=== PATIENT | female | born 1975 | race Caucasian/White ===

== ENCOUNTER 2021-12-29 05:07 | Inpatient (IN) ==
[2021-12-29] MEDS ORDERED: ONDANSETRON INJ 2 MG/ML 2 ML VIAL IV STA (05:20)
[2021-12-29] MEDS ORDERED: SODIUM CHLORIDE 0.9% 1000ML 1,000 ML IV STA (05:20)
[2021-12-29] MEDS ORDERED: MoRPHine SULFATE 4 MG/ML 1 ML CARP\\VIAL IV STA ×2 (05:20→07:00)
--- NOTE | 2021-12-29 05:25 | Emergency Department Note ---
History of Present Illness General Chief complaint: Flank Pain Stated complaint: RIGHT SIDE PAIN Time Seen by Provider: 12/29/21 05:16 History of Present Illness Maximum Pain Intensity: 10 This 46-year-old presents to the ER complaining of abdominal pain Location: Right upper quadrant Quality: Painful Severity: Moderate Duration: Past 3 days Timin days ago Context: Pain got worse and patient came in Modifying factors: better with nothing; worse with eating Patient states symptoms get worse with eating. Patient denies chest pain, dyspnea, fevers, flulike illness. She still has her gallbladder. Past Med/Surg History Medical History High blood pressure Surgical History (Updated 12/29/21 @ 05:22 by Rhonda Tariq PA-C) No pertinent past surgical history Social History Smoking Status: Never smoker Preferred Language: Czech Feels Safe at Home: Yes Review of Systems A total of 10 systems reviewed and were otherwise negative Physical Exam Vital Signs Vital Signs - 24 hr 12/29/21 05:12 12/29/21 05:28 12/29/21 06:23 Temperature 37.1 C Temperature Source Oral Pulse Rate 108 H Pulse Rate [Right Finger] 90 Respiratory Rate 22 20 Respiratory Effort / Characteristics Non-Labored Spontaneous Respiratory Depth Normal Blood Pressure 133/73 Blood Pressure [Right Arm] 155/91 H Blood Pressure Mean 93 Blood Pressure Mean [Right Arm] 112 Blood Pressure Position [Right Arm] Sitting Pulse Oximetry 93 92 94 Oxygen Delivery Method Room Air Room Air Room Air Sepsis New/Unexplained Change in Mental Status N/A Sepsis Action Taken by Nursing No Action Required VITALS: Vitals are noted on the nurse's note and reviewed by myself. Vital signs stable. GENERAL: Pleasant female who appears in pain with an elevated BMI in no acute distress, nondiaphoretic, well-developed well-nourished. SKIN: The skin was without rashes, erythema, edema, or bruising. There is no tenting of the skin. Capillary reflex less than 2 seconds. HEAD: Normocephalic atraumatic. EARS: External auditory canals clear, EYES: Pupils equal round and reactive to light and accommodation. Conjunctivae without injection, sclerae without icterus. Extraocular movements intact. NOSE: Patent, turbinates without inflammation or discharge. MOUTH: Mucous membranes moist. Pharynx without erythema or exudate. Uvula midline. Airway patent. Tongue does not deviate. NECK: Supple without nuchal rigidity. No lymphadenopathy. No thyromegaly. Cervical spine is nontender. No JVD. HEART: Regular rate and rhythm LUNGS: Clear to auscultation bilaterally without wheezes, rales or rhonchi. No retractions or accessory muscle use. ABDOMEN: Positive bowel sounds x 4. Normal tympanic percussion. Soft, tender right upper quadrant, r, without masses or organomegaly. Ceja sign positive. No guarding or rebound tenderness. No CVA tenderness MUSCULOSKELETAL: No muscle atrophy, erythema, or edema noted. NEURO: Patient was alert and oriented to person place and time. Normal sensation to light and sharp touch. No focal neurological deficits. Course Administered Medications Cefoxitin Sodium (Mefoxin) 2,000 mg in 60 mls @ 100 mls/hr IV NOW STA Stop: 12/29/21 06:59 Last Admin: 12/29/21 06:30 Dose: 100 mls/hr Documented by: [id number] Discontinued Medications Sodium Chloride (Nss 1000ml) 1,000 mls @ 999 mls/hr IV .[id number] STA Stop: 12/29/21 06:20 Last Infusion: 12/29/21 06:31 Dose: 0 mls/hr Documented by: [id number] Admin: 12/29/21 05:30 Dose: 999 mls/hr Documented by: [id number] Morphine Sulfate (Morphine Sulfate 4 Mg/Ml 1 Ml Carp\Vial) 4 mg IV NOW STA Stop: 12/29/21 05:21 Last Admin: 12/29/21 05:30 Dose: 4 mg Documented by: [id number] Ondansetron HCl (Ondansetron Inj 2 Mg/Ml 2 Ml Vial) 4 mg IV NOW STA Stop: 12/29/21 05:21 Last Admin: 12/29/21 05:30 Dose: 4 mg Documented by: [id number] Medical Decision Making Medical Records Attestation: I reviewed the patient's medical records. Home Medications Current Medication List: was personally reviewed by me Laboratory Data Attestation: I reviewed the patient's lab results. Result diagrams: 12/29/21 05:20 12/29/21 05:20 Lab Results 12/29/21 12/29/21 12/29/21 Range/Units 05:20 05:20 05:20 WBC 14.05 H (4.8-10.8) K/uL RBC 5.09 (4.2-5.4) M/uL Hgb 15.6 (12.0-16.0) g/dL Hct 46.6 (37-47) % MCV 91.6 (80-100) fL MCH 30.6 (25-34) pg MCHC 33.5 (32-36) g/dL RDW Std Deviation 49.4 H (36.4-46.3) fL RDW Coeff of Amara 14.6 H (11.5-14.5) % Plt Count 262 (130-400) K/uL MPV 13.7 H (7.4-10.4) fL Immature Gran % (Auto) 0.4 % Neut % (Auto) 75.1 % Lymph % (Auto) 17.9 % Luce % (Auto) 5.9 % Eos % (Auto) 0.5 % Baso % (Auto) 0.2 % Neut # (Auto) 10.56 H (1.4-6.5) K/uL Lymph # (Auto) 2.51 (1.2-3.4) K/uL Luce # (Auto) 0.83 H (0.11-0.59) K/uL Eos # (Auto) 0.07 (0-0.5) K/uL Baso # (Auto) 0.03 (0-0.2) K/uL Immature Gran # (Auto) 0.05 H (0.00-0.02) K/uL Sodium 137 (136-145) mmol/L Potassium 3.9 (3.5-5.1) mmol/L Chloride 103 (98-107) mmol/L Carbon Dioxide 22 (21-32) mmol/L Anion Gap 12 H (3-11) BUN 10 (6-23) mg/dl Creatinine 0.75 (0.6-1.2) mg/dl Est Cr Clr Drug Dosing 132.2 ml/min Est GFR ( Amer) 112.4 ml/min Est GFR (Non-Af Amer) 96.9 ml/min BUN/Creatinine Ratio 13.3 (10-20) Glucose 180 H (70-99(Fasting)) mg/dl Calcium 9.1 (8.5-10.1) mg/dl Total Bilirubin 0.9 (0.2-1.0) mg/dl AST 17 (13-39) U/L ALT 24 (7-52) U/L Alkaline Phosphatase 102 (34-104) U/L Total Protein 7.8 (6.0-8.3) gm/dl Albumin 4.3 (3.4-5.0) gm/dl Globulin 3.5 (2.5-4.0) gm/dl Albumin/Globulin Ratio 1.2 (0.9-2) Lipase 14 (11-82) U/L HCG, Qual Negative (Negative) SARS-CoV-2, RNA, NAAT (NEGATIVE) 12/29/21 Range/Units 06:20 WBC (4.8-10.8) K/uL RBC (4.2-5.4) M/uL Hgb (12.0-16.0) g/dL Hct (37-47) % MCV (80-100) fL MCH (25-34) pg MCHC (32-36) g/dL RDW Std Deviation (36.4-46.3) fL RDW Coeff of Amara (11.5-14.5) % Plt Count (130-400) K/uL MPV (7.4-10.4) fL Immature Gran % (Auto) % Neut % (Auto) % Lymph % (Auto) % Luce % (Auto) % Eos % (Auto) % Baso % (Auto) % Neut # (Auto) (1.4-6.5) K/uL Lymph # (Auto) (1.2-3.4) K/uL Luce # (Auto) (0.11-0.59) K/uL Eos # (Auto) (0-0.5) K/uL Baso # (Auto) (0-0.2) K/uL Immature Gran # (Auto) (0.00-0.02) K/uL Sodium (136-145) mmol/L Potassium (3.5-5.1) mmol/L Chloride (98-107) mmol/L Carbon Dioxide (21-32) mmol/L Anion Gap (3-11) BUN (6-23) mg/dl Creatinine (0.6-1.2) mg/dl Est Cr Clr Drug Dosing ml/min Est GFR ( Amer) ml/min Est GFR (Non-Af Amer) ml/min BUN/Creatinine Ratio (10-20) Glucose (70-99(Fasting)) mg/dl Calcium (8.5-10.1) mg/dl Total Bilirubin (0.2-1.0) mg/dl AST (13-39) U/L ALT (7-52) U/L Alkaline Phosphatase (34-104) U/L Total Protein (6.0-8.3) gm/dl Albumin (3.4-5.0) gm/dl Globulin (2.5-4.0) gm/dl Albumin/Globulin Ratio (0.9-2) Lipase (11-82) U/L HCG, Qual (Negative) SARS-CoV-2, RNA, NAAT NEGATIVE (NEGATIVE) Imaging Data Attestation: I personally reviewed and interpreted this imaging study as follows: MDM Narrative Prior records/ancillary studies reviewed. Triage Nursing notes reviewed. Additional history obtained from nursing. The patient's history was concerning for abdominal pain. Differential diagnosis: Etiologies such as appendicitis, diverticulitis, PUD, biliary pathology, UTI, pancreatitis, obstruction, mesenteric ischemia, aortic pathology, infections, inflammatory bowel disease, renal colic, as well as others were entertained. Physical examination findings: As above. ER treatment provided: An order was placed for continuous cardiac monitoring. The monitor shows a rate of 60-1 50 with a sinus rhythm. Zofran morphine IV fluids On reassessment the patient felt better. Diagnostics interpreted by me: The labs revealed mild leukocytosis Hyperglycemia without DKA Imaging studies: US RUQ: Probable cholelithiasis and sludge in gallbladder including a 1.6 cm stone at gallbladder neck which appears non-mobile and there is gallbladder wall th ickening, measuring up to 5.9 mm. Evaluation for sonographic Ceja sign is limited by administration of medication. Findings are suspicious for acute cholecystitis. Consider correlation with nuclear medicine biliary scan as clinically warranted. Common bile duct is mildly dilated, measuring 8.5 mm. Probable hepatic steatosis and hepatomegaly. Question intrahepatic biliary ductal dilatation in right lobe of liver. Radiologist: Conner Alvarado MD Consultation: A consultation was placed with Surgery,Dr Gage. The case was discussed and diagnostics were reviewed. The patient was evaluated in the ER for further treatment by GS. Exam and history seem consistent with acute cholecystitis. Surgery was consulted. They will evaluate for further evaluation and treatment. By the evaluation outlined above emergent etiologies such as appendicitis, diverticulitis, PUD, UTI, pancreatitis, obstruction, mesenteric ischemia, aortic pathology, inflammatory bowel disease, renal colic, as well as others were deemed relatively unlikely. The pt informed about the findings as listed above. All questions were answered and pleased with the treatment. The chart was completed utilizing [employer] Speech voice recognition software. Grammatical errors, random word insertions, pronoun errors, and incomplete sentences are an occassional consequence of this system due to software limitations, ambient noise, and hardware issues. Any formal questions or concerns about the content, text, or information contained within the body of this dictation should be directly addressed to the physician cardiovascular physician assistant for clarification. Impression & Plan Acute cholecystitis Discharge Plan Visit Data Chief Complaint: Flank Pain Stated Complaint: RIGHT SIDE PAIN ED Provider: Chris Narayan ED Midlevel Provider: Rhonda Tariq Discharge Problem: Acute cholecystitis Patient Disposition: Being Evaluated by Surgeon Condition: Good Forms Stand Alone Forms: [facility] Referrals Referrals: PCP,NO [Primary Care Provider] -
[2021-12-29 05:35] LABS: Basophils # (auto) 0.03 K/uL (0-0.2); Basophils % (auto) 0.2 %; Eosinophils # (auto) 0.07 K/uL (0-0.5); Eosinophils % (auto) 0.5 %; Hematocrit (blood only) 46.6 % (37-47); Hemoglobin 15.6 g/dL (12.0-16.0); Immature Granulocytes # (auto) 0.05 K/uL (0.00-0.02); Immature Granulocytes % (auto) 0.4 %; Lymphocytes # (auto) 2.51 K/uL (1.2-3.4); Lymphocytes % (auto) 17.9 %; Mean Corpuscular Hemoglobin 30.6 pg (25-34); Mean Corpuscular Hgb Conc 33.5 g/dL (32-36); Mean Corpuscular Volume 91.6 fL (80-100); Mean Platelet Volume 13.7 fL (7.4-10.4); Monocytes # (auto) 0.83 K/uL (0.11-0.59); Monocytes % (auto) 5.9 %; Neutrophils # (auto) 10.56 K/uL (1.4-6.5); Neutrophils % (auto) 75.1 %; Platelet Count 262 K/uL (130-400); RDW Coefficient of Variation 14.6 % (11.5-14.5); RDW Standard Deviation 49.4 fL (36.4-46.3); Red Blood Count 5.09 M/uL (4.2-5.4); White Blood Count 14.05 K/uL (4.8-10.8)
[2021-12-29 06:00] LABS: Albumin Globulin Ratio 1.2 (0.9-2); Albumin Level 4.3 gm/dl (3.4-5.0); BUN Creatinine Ratio 13.3 (10-20); Bilirubin,Total 0.9 mg/dl (0.2-1.0); Calcium 9.1 mg/dl (8.5-10.1); Creatinine Clr Calc Pharmacy 132.2 ml/min; Est GFR (African American) 112.4 ml/min; Est GFR (Non-African American) 96.9 ml/min; Globulin 3.5 gm/dl (2.5-4.0); Potassium 3.9 mmol/L (3.5-5.1); Total Protein 7.8 gm/dl (6.0-8.3)
[2021-12-29 06:11] LABS: Pregnancy Test, Serum Negative (Negative)
[2021-12-29] MEDS ORDERED: cefOXitin 2,000 MG/60 ML BAG IV STA (06:24)
--- NOTE | 2021-12-29 06:57 | Ultrasound Report ---
US gallbladder HISTORY: 46 years-old Female ruq pain acute right upper quadrant abdominal pain COMPARISON: None TECHNIQUE: Multiple real-time sonographic images of the abdominal right upper quadrant were obtained assessing grayscale appearance and color flow FINDINGS: Limited study secondary to patient body habitus. The visualized pancreas is unremarkable. The liver measures up to 23.7 cm and is echogenic. No hepati c mass or marginal nodularity identified. Edematous gallbladder wall thickening measures up to approx imately 5 mm. The gallbladder is stone in sludge-filled. There is a 1.6 cm nonmobile stone noted with in the gallbladder neck. No pericholecystic fluid identified. The sonographic Ceja sign was unable to be assessed secondary to recent pain medication administered to the patient. The common bile duct is dilated at 8.5 mm. The imaged right kidney is unremarkable without hydronephrosis. IMPRESSION: 1. Cholelithiasis with gallbladder wall thickening suspicious for acute cholecystitis. There is howev er no pericholecystic fluid identified and the sonographic Ceja sign was unable to be assessed. Nuc [facility] medicine hepatobiliary scan may be considered for confirmation. 2. Mild common bile duct dilation. Correlate with serum bilirubin to exclude obstruction. 3. Hepatomegaly with hepatic steatosis. ACT 112: Negative or not required by law. The above report was generated using voice recognition software. It may contain grammatical, syntax o r spelling errors. Electronically signed by: Melvin Rawls M.D. 12/29/2021 6:55 AM
--- NOTE | 2021-12-29 09:02 | History & Physical Report ---
Date of Service December 29, 2021 Assessment & Plan (1) Acute cholecystitis: (2) Common bile duct dilatation: Plan: 46 year-old female presented to ED with 3 day history of intermittent RUQ abdominal pain which became constant with associated nausea and diarrhea. US showing evidence of acute cholecystitis with gallbladder neck stone. CBD slightly dilated however t. bili and lfts wnl. Leukocytosis of 14K. Exam with tenderness in RUQ and positive ceja's sign. Plan: Discussed with patient her labs and imaging findings consistent with acute cholecystitis due to gallstones. Discussed dilated CBD and may need to order another imaging study to evaluate vs intraoperative cholangiogram. Discussed laparoscopic cholecystectomy and risks and expected recovery. Will get her admitted, keep npo, iV fluids, pain management as needed, IV zofran as needed, IV Cefoxitin. Discussed with Dr. Cai who recommended admit patient and order MRCP to evaluate CBD. Possible OR today vs tomorrow. Possible Intraoperative cholangiogram. Dr. Cai to evaluate patient later this morning. 12/29/2021 9:19AM, Dr. Cai I reviewed pt's H/P, labs, U/S study with pt, I recommend to do laparoscopic cholecystectomy, with cholangiogram, possible open, D/W benefits, risks and alte rnatives of the surgery, the risks - infection, bleeding, injury other organs, bile leak, may need ERCP, incisional hernia, pt understood, she agrees with surgery, she signed informed consent, I answered all questions, cancel MRCP, History of Present Illness Primary Care Provider: NO PCP Nevaeh is a 46 year-old female who presented to ED with complaint of right upper abdominal pain that began about 3 days ago off and on and has now been constant severe pain for last 18 hours with associated nausea. Some radiation around to her upper back. No vomiting. Denies fever or chills. Has had diarrhea for last few days. Denies of any chest pain, shortness of breath, vomiting, blood in stools, acholic stools, generalized itching, jaundice, difficulty urinating, or blood in urine. Denies of any prior gallbladder issues. History of and ablations. No blood thinning agents. Allergies Allergy/AdvReac Type Severity Reaction Status Date / Time No Known Allergies Allergy Unverified 12/29/21 07:06 Past Med/Surg History Medical History High blood pressure Surgical History (Updated 12/29/21 @ 05:22 by Rhonda Tariq PA-C) No pertinent past surgical history Social History Smoking Status: Never smoker Preferred Language: Gibraltarian Feels Safe at Home: Yes Physical Exam Constitutional: WD/WN, vitals as above + morbidly obese; no acute distress and not ill appearing Neck: normal visual inspection and trachea midline Respiratory: normal respiratory effort, lungs clear to auscultation Cardiovascular: Rate/Rhythm: regular rhythm and + tachycardic Heart Sounds: normal S1 and normal S2; no murmur Gastrointestinal (Abdomen): Inspection/Auscultation: abdomen normal to inspection and normal bowel sounds; abdomen not distended Percussion/Palpation: + abdomen tender (RUQ with positive Ceja's sign), + guarding (RUQ) and abdomen soft; abdomen not rigid Skin: no rashes, warm and dry no jaundice Psychiatric: A+Ox3, euthymic affect Results & Data Results & Data ([facility]) Vital Signs (Past 12 Hours) Vital Signs Temp Pulse Pulse Resp BP BP Pulse Ox 12/29/21 08:15 100 H 16 171/90 H 94 12/29/21 07:10 99 H 18 155/91 H 95 12/29/21 06:23 90 20 155/91 H 94 12/29/21 05:28 92 12/29/21 05:12 37.1 C 108 H 22 133/73 93 Laboratory Results 12/29/21 12/29/21 12/29/21 Range/Units 06:20 05:20 05:20 WBC 14.05 H (4.8-10.8) K/uL RBC 5.09 (4.2-5.4) M/uL Hgb 15.6 (12.0-16.0) g/dL Hct 46.6 (37-47) % MCV 91.6 (80-100) fL MCH 30.6 (25-34) pg MCHC 33.5 (32-36) g/dL RDW Std Deviation 49.4 H (36.4-46.3) fL RDW Coeff of Amara 14.6 H (11.5-14.5) % Plt Count 262 (130-400) K/uL MPV 13.7 H (7.4-10.4) fL Immature Gran % (Auto) 0.4 % Neut % (Auto) 75.1 % Lymph % (Auto) 17.9 % Robertson % (Auto) 5.9 % Eos % (Auto) 0.5 % Baso % (Auto) 0.2 % Neut # (Auto) 10.56 H (1.4-6.5) K/uL Lymph # (Auto) 2.51 (1.2-3.4) K/uL Robertson # (Auto) 0.83 H (0.11-0.59) K/uL Eos # (Auto) 0.07 (0-0.5) K/uL Baso # (Auto) 0.03 (0-0.2) K/uL Immature Gran # (Auto) 0.05 H (0.00-0.02) K/uL Sodium 137 (136-145) mmol/L Potassium 3.9 (3.5-5.1) mmol/L Chloride 103 (98-107) mmol/L Carbon Dioxide 22 (21-32) mmol/L Anion Gap 12 H (3-11) BUN 10 (6-23) mg/dl Creatinine 0.75 (0.6-1.2) mg/dl Est Cr Clr Drug Dosing 132.2 ml/min Est GFR ( Amer) 112.4 ml/min Est GFR (Non-Af Amer) 96.9 ml/min BUN/Creatinine Ratio 13.3 (10-20) Glucose 180 H (70-99(Fasting)) mg/dl Calcium 9.1 (8.5-10.1) mg/dl Total Bilirubin 0.9 (0.2-1.0) mg/dl AST 17 (13-39) U/L ALT 24 (7-52) U/L Alkaline Phosphatase 102 (34-104) U/L Total Protein 7.8 (6.0-8.3) gm/dl Albumin 4.3 (3.4-5.0) gm/dl Globulin 3.5 (2.5-4.0) gm/dl Albumin/Globulin Ratio 1.2 (0.9-2) Lipase 14 (11-82) U/L HCG, Qual (Negative) SARS-CoV-2, RNA, NAAT NEGATIVE (NEGATIVE) 12/29/21 Range/Units 05:20 WBC (4.8-10.8) K/uL RBC (4.2-5.4) M/uL Hgb (12.0-16.0) g/dL Hct (37-47) % MCV (80-100) fL MCH (25-34) pg MCHC (32-36) g/dL RDW Std Deviation (36.4-46.3) fL RDW Coeff of Amara (11.5-14.5) % Plt Count (130-400) K/uL MPV (7.4-10.4) fL Immature Gran % (Auto) % Neut % (Auto) % Lymph % (Auto) % Robertson % (Auto) % Eos % (Auto) % Baso % (Auto) % Neut # (Auto) (1.4-6.5) K/uL Lymph # (Auto) (1.2-3.4) K/uL Robertson # (Auto) (0.11-0.59) K/uL Eos # (Auto) (0-0.5) K/uL Baso # (Auto) (0-0.2) K/uL Immature Gran # (Auto) (0.00-0.02) K/uL Sodium (136-145) mmol/L Potassium (3.5-5.1) mmol/L Chloride (98-107) mmol/L Carbon Dioxide (21-32) mmol/L Anion Gap (3-11) BUN (6-23) mg/dl Creatinine (0.6-1.2) mg/dl Est Cr Clr Drug Dosing ml/min Est GFR ( Amer) ml/min Est GFR (Non-Af Amer) ml/min BUN/Creatinine Ratio (10-20) Glucose (70-99(Fasting)) mg/dl Calcium (8.5-10.1) mg/dl Total Bilirubin (0.2-1.0) mg/dl AST (13-39) U/L ALT (7-52) U/L Alkaline Phosphatase (34-104) U/L Total Protein (6.0-8.3) gm/dl Albumin (3.4-5.0) gm/dl Globulin (2.5-4.0) gm/dl Albumin/Globulin Ratio (0.9-2) Lipase (11-82) U/L HCG, Qual Negative (Negative) SARS-CoV-2, RNA, NAAT (NEGATIVE) Diagnostic Findings US gallbladder HISTORY: 46 years-old Female ruq pain acute right upper quadrant abdominal pain COMPARISON: None TECHNIQUE: Multiple real-time sonographic images of the abdominal right upper quadrant were obtained assessing grayscale appearance and color flow FINDINGS: Limited study secondary to patient body habitus. The visualized pancreas is unremarkable. The liver measures up to 23.7 cm and is echogenic. No hepatic mass or marginal nodularity identified. Edematous gallbladder wall thickening measures up to approximately 5 mm. The gallbladder is stone in sludge-filled. There is a 1.6 cm nonmobile stone noted within the gallbladder neck. No pericholecystic fluid identified. The sonographic Ceja sign was unable to be assessed secondary to recent pain medication administered to the patient. The common bile duct is dilated at 8.5 mm. The imaged right kidney is unremarkable without hydronephrosis. IMPRESSION: 1. Cholelithiasis with gallbladder wall thickening suspicious for acute cholecystitis. There is however no pericholecystic fluid identified and the sonographic Ceja sign was unable to be assessed. Nuclear medicine hepatobiliary scan may be considered for confirmation. 2. Mild common bile duct dilation. Correlate with serum bilirubin to exclude obstruction. 3. Hepatomegaly with hepatic steatosis. Code Status & VTE Plan VTE Prophylaxis Plan VTE Prophylaxis will be ordered: Yes
[2021-12-29] MEDS ORDERED: fentaNYL citrate 100 MCG/2 ML VIAL ONE (11:02)
[2021-12-29] MEDS ORDERED: MIDAZOLAM HCL 1 MG/ML 2ML VIAL ONE (11:02)
--- NOTE | 2021-12-29 12:05 | Anesthesiology Consultation ---
Date of Service December 29, 2021 Assessment & Plan (1) Encounter for pre-operative examination: Chart Review Chart Review: Acceptable Risk for Surgery and Patient NOT seen in Pre Admission Testing Consults Requested none History Surgery Operation Date: 12/29/21 10:15 Proposed Procedures p Laparoscopic Cholecystectomy with Cholangiogram - Seble Cai MD Height/Weight Height: 5 ft 4 in Weight: 136.7 kg Allergies Allergy/AdvReac Type Severity Reaction Status Date / Time No Known Allergies Allergy Unverified 12/29/21 07:06 Medications Home Medications Medication Instructions Recorded Confirmed Last Taken lisinopril 5 mg tablet 5 mg PO DAILY 12/29/21 12/29/21 Unknown multivitamin 1 cap PO DAILY 12/29/21 12/29/21 12/25/21 NPO Date Last Intake of Fluids: 12/28/21 Time Last Intake of Fluids: 20:00 Date Last Intake of Solids: 12/28/21 Time Last Intake of Solids: 18:00 Past Medical History Medical History (Updated 12/29/21 @ 12:05 by Darius Newman MD) High blood pressure Morbid obesity Past Surgical History Surgical History History of adenoidectomy History of Past Anesthesia History No Hx of Anesthesia Complications and No Family Hx of Anesthesia Complications History of PONV No Hx of PONV and No Hx of Motion Sickness Social History Smoking Status: Never smoker Physical Exam Vital Signs Last Vital Signs Temp 37.8 C H 12/29/21 11:08 Pulse 109 H 12/29/21 11:08 Resp 20 12/29/21 11:08 BP 167/98 H 12/29/21 11:08 Pulse Ox 94 12/29/21 11:32 Testing Laboratory Results 12/29/21 05:20 12/29/21 05:20
--- NOTE | 2021-12-29 12:49 | History & Physical Bridge Note ---
Date of Service December 29, 2021 History & Physical Bridge Note I have examined the patient, reviewed the History & Physical and in the interval since the performance of the History & Physical I have noted the following changes of clinical significance: no changes noted
[2021-12-29] MEDS ORDERED: PROPOFOL IV EMULSION 10 MG/ML 20 ML VIAL IV ONE (13:40)
[2021-12-29] MEDS ORDERED: ROCURONIUM BROMIDE 10 MG/ML 5 ML VIAL IV ONE ×4 (13:40→15:33)
[2021-12-29] MEDS ORDERED: SUCCINYLCHOLINE CHLORIDE 20 MG/ML 10 ML VIAL IV ONE (13:40)
[2021-12-29] MEDS ORDERED: LARYING-O-JET KIT (LTA) ONE (13:40)
[2021-12-29] MEDS ORDERED: BUPIVACAINE 0.5 % 5 MG/1 ML MPF 30ML VIAL INJ ONE (13:40)
[2021-12-29] MEDS ORDERED: LIDOCAINE 2% MPF LOCAL 5 ML VIAL INFIL ONE (13:40)
[2021-12-29] MEDS ORDERED: GLYCOPYRROLATE 0.2 MG/ML VIAL ONE (13:41)
[2021-12-29] MEDS ORDERED: BACITRACIN OINT 15 GM TUBE TOP ONE (13:41)
[2021-12-29] MEDS ORDERED: ONDANSETRON INJ 2 MG/ML 2 ML VIAL ONE (13:41)
[2021-12-29] MEDS ORDERED: LIDOCAINE 1% LOCAL 20 ML VIAL INJ ONE (13:41)
[2021-12-29] MEDS ORDERED: KETOROLAC 30 MG/ML VIAL ONE (13:41)
[2021-12-29] MEDS ORDERED: NEOSTIGMINE METHYLSULFATE 1 MG/ML 10ML VIAL ONE (13:41)
[2021-12-29] MEDS ORDERED: DEXAMETHASONE SOD INJ 4 MG/ML VIAL ONE (13:41)
[2021-12-29] MEDS ORDERED: SUGAMMADEX SODIUM 200 MG/2 ML VIAL IV ONE (14:23)
[2021-12-29] MEDS ORDERED: OPTIRAY 300 IV ONE (14:30)
--- NOTE | 2021-12-29 16:04 | Post Operative Brief Note ---
Immediate Post Op Note v1 Date of Surgery December 29, 2021 Pre & Post Diagnosis Operation Date: 12/29/21 10:15 Pre-Op Diagnosis: Acute Cholecystitis, cholelithiasis Post-Op Diagnosis: Acute Cholecystitis, Cholelithiasis, gangrenous gallbladder I identified the patient and participated in the time-out.: Yes Procedure Operation Date: 12/29/21 10:15 Actual Procedures p Laparoscopic Subtotal Cholecystectomy with Cholangiogram(Not Applicable) - Seble Cai MD Surgeon Seble Cai MD Ballistician medical or surgical instrument maker Estimated Blood Loss 30 Findings Consistent with Post-Op Diagnosis acute cholecystitis, significant inflammation on gallbladder wall, gangrenous gallbladder Fluids 1500ml Specimens gallbladder Drains Christiano-Mcbride Drain (10mm) Anesthesia Type General Complications none Disposition Accompanied Patient To Recovery: Yes
--- NOTE | 2021-12-29 16:34 | Fluoroscopy Report ---
[place] cholangiogram OR HISTORY: 46 years-old Female POSSIBLE CHOLANGIOGRAM IN THE O.R. COMPARISON: Gallbladder ultrasound of same day TECHNIQUE: 7 spot fluoroscopic images of the abdomen were obtained utilizing 5.7 seconds fluoroscopy time FINDINGS: The images are limited. Intraoperative injection of contrast into the gallbladder demonstrates appare nt extravasation within the adjacent demetris hepatis and along the right hepatic lobe. No contrast is i dentified within the duodenum. IMPRESSION: Fluoroscopic assistance as above. ACT 112: Negative or not required by law. The above report was generated using voice recognition software. It may contain grammatical, syntax o r spelling errors. Electronically signed by: Melvin Rawls M.D. 12/29/2021 4:32 PM
--- NOTE | 2021-12-29 16:54 | Anesthesiology Progress Note ---
Date of Service December 29, 2021 Anesthesia Post Procedure Vital Signs Vital Signs: Temp Pulse Pulse Pulse Resp BP BP 12/29/21 16:50 37.8 C H 89 20 131/80 12/29/21 16:40 89 20 146/95 H 12/29/21 16:30 89 20 146/95 H 12/29/21 16:20 88 18 120/81 12/29/21 16:12 37.9 C H 90 18 145/82 H 12/29/21 11:32 12/29/21 11:08 37.8 C H 109 H 20 167/98 H 12/29/21 09:47 101 H 20 155/84 H 12/29/21 09:30 12/29/21 08:15 100 H 16 171/90 H 12/29/21 07:10 99 H 18 155/91 H 12/29/21 06:23 90 20 155/91 H 12/29/21 05:28 12/29/21 05:12 37.1 C 108 H 22 133/73 Pulse Ox 12/29/21 16:50 94 12/29/21 16:40 94 12/29/21 16:30 94 12/29/21 16:20 94 12/29/21 16:12 92 12/29/21 11:32 94 12/29/21 11:08 92 12/29/21 09:47 95 12/29/21 09:30 89 L 12/29/21 08:15 94 12/29/21 07:10 95 12/29/21 06:23 94 12/29/21 05:28 92 12/29/21 05:12 93 Transfer of Care Handoff Completed per policy Notes Mental Status: alert / awake / arousable Patient Amnestic to Procedure: Yes Nausea / Vomiting: adequately controlled Pain: adequately controlled Airway Patency, RR, SpO2: stable & adequate BP & HR: stable & adequate Hydration State: stable & adequate Anesthetic Complications: no major complications apparent
[2021-12-29] MEDS ORDERED: ePHEDrine sulfate 50 MG/ML AMP IV PRN (17:48)
[2021-12-29] MEDS ORDERED: ONDANSETRON INJ 2 MG/ML 2 ML VIAL IV PRN ×3 (17:48)
[2021-12-29] MEDS ORDERED: MoRPHine SULFATE 4 MG/ML 1 ML CARP\\VIAL IV PRN (17:48)
[2021-12-29] MEDS ORDERED: ATROPINE SULFATE 0.1 MG/ML 10ML SYR IV PRN (17:48)
[2021-12-29] MEDS ORDERED: oxyCODONE/ACETAMINOPHEN 5mg/325mg TAB PO PRN (17:48)
[2021-12-29] MEDS ORDERED: fentaNYL citrate 100 MCG/2 ML VIAL IV PRN (17:48)
[2021-12-29] MEDS ORDERED: LACTATED RINGER'S 1,000 ML IV SCH (17:48)
[2021-12-29] MEDS ORDERED: HYDROmorphone INJ 1 MG/ML SYRINGE IV PRN (17:48)
[2021-12-29] MEDS: MoRPHine SULFATE 2 MG/ML CARP IV PRN (20:05)
[2021-12-29] MEDS: cefOXitin 2,000 MG in DEXTROSE 5% 50 ML IV SCH (20:05)
[2021-12-29] MEDS: LACTATED RINGER'S 1,000 ML IV SCH (20:06)
--- NOTE | 2021-12-29 21:06 | Operative Report (OR) ---
DATE OF PROCEDURE: 12/29/2021. PREOPERATIVE DIAGNOSES: Acute cholecystitis, cholelithiasis. POSTOPERATIVE DIAGNOSES: Acute cholecystitis, cholelithiasis, gangrenous gallbladder. OPERATION: Laparoscopic subtotal cholecystectomy, intraoperative cholangiogram, SHELDON drainage x1. SURGEON: Seble Cai MD. ANESTHESIA: General. ESTIMATED BLOOD LOSS: About 30 mL. FINDINGS: Significant inflammation on the gallbladder wall, also gangrenous gallbladder. COMPLICATIONS: None. INDICATIONS FOR THE PROCEDURE: This is a 46-year-old female who presented to ED with 3 days' history of right upper quadrant pain and the patient had an ultrasound diagnosis of acute cholecystitis with cholelithiasis, and I recommended to do laparoscopic cholecystectomy, intraoperative cholangiogram, possible open. I did talk to the patient about the benefit, risk, alternate procedure. I indicated the risks may include, but not limited to, such as bleeding, infection, injury to other organs, bile leak, may need ERCP, redo subtotal cholecystectomy, incisional hernia, DVT, myocardial infarction, e akash . The patient understands. She signed informed consent and I answered all questions. DETAILS OF PROCEDURE: After we identified the patient and verified the procedure, we brought the pat ient to the OR, put the patient in the supine position on the OR table. The patient received SCD on bilateral legs to prevent DVT. Also, patient received 2 grams of cefoxitin IV for prophylactic antib iotic. The patient received general anesthesia without difficulty. The abdomen was prepped and drap ed in routine sterile fashion. After timeout, I injected the local anesthesia by using 1% lidocaine mixed with 0.5% Marcaine just above the umbilicus, then I made a small incision just above umbilicus, opened fascia, opened peritoneum. Under direct vision, put a Joseph trocar in, connected to CO2 to create pneumoperitoneum, flow rate at 6 liters per minute, pressure not more than 14 mmHg. Once we got a nice pneumoperitoneum, we put a camera in, looked around the abdomen, it shows normal f inding on the liver; however, the gallbladder showed significant inflammation with gangrenous gallbla dder and also omental adhesions to the gallbladder. Once we confirmed the diagnosis, we put another two 5 mm trocars in the right upper quadrant, one 12 trocar in the epigastric area. Once all trocars in, we peeled down all omental adhesions to the gallbladder and again, we found the patient had a ga ngrenous gallbladder with significant distention. At this moment, we tried to dissect and mobilize th e cyst duct; however, due to significant inflammation, edema of the cystic duct, DICTATION ENDS HERE Job ID: [id number]
--- NOTE | 2021-12-29 21:26 | Operative Report (OR) ---
DATE OF PROCEDURE: 12/29/2021. PREOPERATIVE DIAGNOSES: Acute cholecystitis, cholelithiasis. POSTOPERATIVE DIAGNOSES: Acute cholecystitis, cholelithiasis, gangrenous gallbladder. OPERATION: Laparoscopic subtotal cholecystectomy, intraoperative cholangiogram, and SHELDON drainage x1. SURGEON: Seble Cai MD. ANESTHESIA: General. ESTIMATED BLOOD LOSS: About 30 mL. FINDINGS: Significant inflammation on the gallbladder wall, acute cholecystitis with cholelithiasis, and gangrenous gallbladder. COMPLICATIONS: None. INDICATIONS FOR THE PROCEDURE: This is a 46-year-old female who presented to ED with 3 days' history of right upper quadrant pain and the patient had an ultrasound diagnosis of acute cholecystitis, cho lelithiasis and dilated common bile duct. I recommended to do laparoscopic cholecystectomy, intraope rative cholangiogram, possible open. I did talk to the patient about the benefit, risk, alternate pr ocedure. I indicated the risks may include, but not limited to, such as bleeding, infection, injury to other organs, bile leak, may need ERCP, subtotal cholecystectomy, DVT, myocardial infarction, and even . The patient understands and she signed informed consent and I answered all questions. DETAILS OF PROCEDURE: After we identified the patient and verified the procedure, we brought the pat ient to the OR, put the patient in the supine position on the OR table. The patient received SCD on bilateral legs to prevent DVT. Also, patient received 2 grams of cefoxitin IV for prophylactic antib iotic. The patient received general anesthesia without difficulty. The abdomen was prepped and drap ed in routine sterile fashion. After timeout, I injected the local anesthesia by using 1% lidocaine mixed with 0.5% Marcaine just above the umbilicus. Then, I made a small incision just above umbilicu s, opened fascia, opened peritoneum. Under direct vision, put a Joseph trocar in, connected to CO2 t o create pneumoperitoneum, flow rate at 6 liters per minute, pressure not more than 14 mmHg. Once we got a nice pneumoperitoneum, we put a camera in, looked around the abdomen, it shows normal f inding on the liver; however, the gallbladder showed significant inflammation with edema on the gallb ladder wall and with a gangrenous gallbladder. Once we confirmed the diagnosis, we put another two 5 mm trocars in the right upper quadrant, one 12 trocar in the epigastric area. Once all trocars in, we used the grasper to hold the base of gallbladder, put in the direction to the diaphragm and anothe r grasper to hold the pouch of gallbladder, put a lateral to try to explore the triangle of Calot; ho wever, due to significant inflammation and also there was a large stone stuck in the cystic duct, it was difficult to identify the cystic duct. At this moment, we mobilized the stone and we decided to do the intraoperative cholangiogram using Harris technique cholangiogram. After we injected the dye, we took an x-ray, then we reviewed the x-ray, it only showed gallbladder a nd the contrast could not go through the cystic duct or common bile duct, and I believe they are larg e stones stuck at the cystic duct. At this moment, due to the significant inflammation and difficult to identify the cystic duct, I decided to use a top-down technique and took down the gallbladder and removed more than 90% of the gallbladder. We left a one small piece of gallbladder posterior wall o n the liver due to significant inflammation, as whenever we dissected it, the patient had significant bleeding. At this moment once we removed most of the gallbladder and we found the patient had one la rge stone about 1.5 cm stone stuck at the cystic duct, we removed the stone. I decided to use an End oloop to close the cystic duct. We used the Endoloop to close the cystic duct x2; rechecked, no bile leak and also we used the Bovie on the remaining piece of gallbladder wall on the liver side; recheck ed, no active bleeding. Then, we removed the gallbladder and stone through the catch bag. Then, we reinserted the Joseph trocar in, connected to CO2 to create pneumoperitoneum, again looked a round the abdomen, no active bleeding, no bile leak from liver bed. I decided to put one [address] guerra on the liver bed. I used a 2-0 silk to fix the SHELDON drainage on the skin. Then, we removed all trocars under direct vision. No active bleeding from the trocar site. Pneumoperitoneum was release d, then I closed the umbilical incision fascial layer by using 0 Vicryl [id number] x2, closed evans bcutaneous layer by using 2-0 Vicryl interruptedly, closed skin by using 4-0 Vicryl continuous runnin g, closed the epigastric incision fascial layer by using 0 Vicryl [id number] x2, closed subcutan eous layer by using 2-0 Vicryl interruptedly, closed skin by using 4-0 Vicryl interruptedly, closed a nother two 5 mm trocar site of skin only by using 4-0 Vicryl. Then, we put the dressing on. The patient tolerated the procedure well. All instrument, needle and sponge counts were correct x2 a t the end of the case. The patient was transferred to recovery room in stable condition. The specim en was sent to pathology. After the procedure, I did talk to the patient about the OR finding and th e procedure we did, the patient understands. Job ID: [id number]
[2021-12-30] MEDS: cefOXitin 2,000 MG in DEXTROSE 5% 50 ML IV SCH ×4 (00:37→19:38)
[2021-12-30 04:01] LABS: Appearance Urine Clear (Clear); Bacteria Urine Automated Negative (Negative); Bilirubin Urine Negative (Negative); Blood Urine Negative (Negative); Color Urine Yellow; Epithelial Cell Urine Auto >30 /lpf (0-5); Glucose Urine UA Negative (Negative); Ketones Urine Trace (Negative); Leukocyte Esterase Urine Negative (Negative); Nitrite Urine Negative (Negative); Protein Urine Trace (Negative); Specific Gravity Urine 1.019 (1.000-1.030); Urobilinogen Urine Negative (Negative)
[2021-12-30 04:15] LABS: Cast Urine Automated 0 /lpf (0-5)
[2021-12-30 04:16] LABS: RBC Urine Automated 0-4 /hpf (0-4)
[2021-12-30 07:12] LABS: Hematocrit (blood only) 41.1 % (34.1-44.9); Hemoglobin 13.3 g/dl (12.0-16.0); Mean Corpuscular Hemoglobin 30.2 pg (25.0-34.0); Mean Corpuscular Hgb Conc 32.4 g/dL (32.0-36.0); Mean Corpuscular Volume 93.4 fL (80.0-100.0); RDW Coefficient of Variation 14.6 % (11.5-14.5); RDW Standard Deviation 50.6 fL (36.4-46.3); White Blood Count 12.73 K/ul (4.8-10.8)
[2021-12-30 07:28] LABS: Albumin Globulin Ratio 1.1 (0.9-2); Albumin Level 3.6 gm/dl (3.4-5.0); BUN Creatinine Ratio 17.4 (10-20); Bilirubin,Total 0.7 mg/dl (0.2-1.0); Calcium 8.4 mg/dl (8.5-10.1); Creatinine Clr Calc Pharmacy 143.7 ml/min; Est GFR (African American) 122.7 ml/min; Est GFR (Non-African American) 105.9 ml/min; Globulin 3.2 gm/dl (2.5-4.0); Potassium 3.9 mmol/L (3.5-5.1); Total Protein 6.8 gm/dl (6.0-8.3)
[2021-12-30 08:22] LABS: Basophils # (auto) 0.02 K/uL (0-0.2); Basophils % (auto) 0.2 %; Immature Granulocytes # (auto) 0.06 K/uL (0.00-0.02); Immature Granulocytes % (auto) 0.5 %; Lymphocytes # (auto) 1.26 K/uL (1.2-3.4); Lymphocytes % (auto) 9.9 %; Mean Platelet Volume 13.4 fL (9.4-12.3); Monocytes # (auto) 0.79 K/uL (0.24-0.82); Monocytes % (auto) 6.2 %; Neutrophils % (auto) 83.2 %; Platelet Count 190 K/uL (130-400)
[2021-12-30] MEDS: MoRPHine SULFATE 2 MG/ML CARP IV PRN (09:10)
[2021-12-30] MEDS: lisinopril 5 MG TAB PO SCH (09:12)
[2021-12-30] MEDS: MULTIVITAMIN TAB PO SCH (09:12)
[2021-12-30] MEDS: ENOXAPARIN INJ 40 MG/0.4 ML SYR SQ SCH (09:12)
--- NOTE | 2021-12-30 09:51 | Surgery Progress Note ---
Date of Service December 30, 2021 Assessment & Plan (1) Acute cholecystitis: (2) Common bile duct dilatation: Plan: POD # 1 s/p laparoscopic subtotal cholecystectomy and drain placement for gangrenous cholecystitis -afebrile, vss - postop pain moderate, controlled - prashant drain with 210 cc output, serosanguineous - mild nausea this am Plan: Advance diet as tolerated continue pain management as needed continue prashant drain to bulb suction Zofran prn nausea encouraged incentive spirometry and ambulation will repeat am labs likely discharge home tomorrow with prashant drain Dr. Cai has seen and examined pt, agrees with above. Admission and Anticipated Discharge Date Admission Date: December 29, 2021 Subjective feeling better today, preoperative pain has resolved tenderness at incision sites and drain sites mild nausea this am tolerating clear liquids no chest pain or shortness of breath, required some oxygen since surgery but no difficulty breathing. Using incentive spirometry urinating without difficulty Physical Exam Constitutional: WD/WN, vitals as above + morbidly obese; no acute distress and not ill appearing Neck: normal visual inspection and trachea midline Respiratory: normal respiratory effort; no respiratory distress Gastrointestinal (Abdomen): Inspection/Auscultation: + abdominal surgical drain present (serosanguineous); abdomen not distended Skin: no rashes, warm and dry no jaundice Psychiatric: A+Ox3, euthymic affect Results & Data ([facility]) Vital Signs (Past 12 Hours) Vital Signs Temp Pulse Resp BP BP Pulse Ox 12/30/21 05:58 36.7 C 82 16 129/78 91 12/30/21 03:23 36.6 C 84 16 126/58 L 92 12/29/21 22:26 36.9 C 89 16 144/80 H 91 Laboratory Results 12/30/21 12/30/21 12/30/21 Range/Units 06:27 06:27 03:49 WBC 12.73 H (4.8-10.8) K/ul RBC 4.40 (3.93-5.22) M/uL Hgb 13.3 (12.0-16.0) g/dl Hct 41.1 (34.1-44.9) % MCV 93.4 (80.0-100.0) fL MCH 30.2 (25.0-34.0) pg MCHC 32.4 (32.0-36.0) g/dL RDW Std Deviation 50.6 H (36.4-46.3) fL RDW Coeff of Amara 14.6 H (11.5-14.5) % Plt Count 190 (130-400) K/uL MPV 13.4 H (9.4-12.3) fL Immature Gran % (Auto) 0.5 % Neut % (Auto) 83.2 % Lymph % (Auto) 9.9 % [place] % (Auto) 6.2 % Eos % (Auto) 0.0 % Baso % (Auto) 0.2 % Neut # (Auto) 10.60 H (1.4-6.5) K/uL Lymph # (Auto) 1.26 (1.2-3.4) K/uL [place] # (Auto) 0.79 (0.24-0.82) K/uL Eos # (Auto) 0.00 (0-0.50) K/uL Baso # (Auto) 0.02 (0-0.2) K/uL Immature Gran # (Auto) 0.06 H (0.00-0.02) K/uL Sodium 140 (136-145) mmol/L Potassium 3.9 (3.5-5.1) mmol/L Chloride 106 (98-107) mmol/L Carbon Dioxide 26 (21-32) mmol/L Anion Gap 8 (3-11) BUN 12 (6-23) mg/dl Creatinine 0.69 (0.6-1.2) mg/dl Est Cr Clr Drug Dosing 143.7 ml/min Est GFR ( Amer) 122.7 ml/min Est GFR (Non-Af Amer) 105.9 ml/min BUN/Creatinine Ratio 17.4 (10-20) Glucose 140 H (70-99(Fasting)) mg/dl Calcium 8.4 L (8.5-10.1) mg/dl Total Bilirubin 0.7 (0.2-1.0) mg/dl AST 17 (13-39) U/L ALT 24 (7-52) U/L Alkaline Phosphatase 76 (34-104) U/L Total Protein 6.8 (6.0-8.3) gm/dl Albumin 3.6 (3.4-5.0) gm/dl Globulin 3.2 (2.5-4.0) gm/dl Albumin/Globulin Ratio 1.1 (0.9-2) Urine Color Yellow Urine Appearance Clear (Clear) Urine pH 6.0 (4.5-7.5) Ur Specific [place] 1.019 (1.000-1.030) Urine Protein Trace H (Negative) Urine Glucose (UA) Negative (Negative) Urine Ketones Trace H (Negative) Urine Blood Negative (Negative) Urine Nitrite Negative (Negative) Urine Bilirubin Negative (Negative) Urine Urobilinogen Negative (Negative) Ur Leukocyte Esterase Negative (Negative) Urine WBC (Auto) 1-5 (0-5) /hpf Urine RBC (Auto) 0-4 (0-4) /hpf U Hyaline Cast (Auto) 0 (0-5) /lpf U Epithel Cells (Auto) >30 H (0-5) /lpf Urine Bacteria (Auto) Negative (Negative) Ur Renal Epithelial Cell Not Reportable
[2021-12-30] MEDS ORDERED: traMADol HCL 50 MG TABLET PO PRN (10:59)
[2021-12-30] MEDS ORDERED: ACETAMINOPHEN 325 MG TAB PO PRN (10:59)
[2021-12-30] MEDS: LACTATED RINGER'S 1,000 ML IV SCH ×2 (16:06→19:39)
[2021-12-31] MEDS: cefOXitin 2,000 MG in DEXTROSE 5% 50 ML IV SCH ×2 (02:07→06:03)
[2021-12-31] MEDS: LACTATED RINGER'S 1,000 ML IV SCH (05:49)
[2021-12-31] MEDS: ENOXAPARIN INJ 40 MG/0.4 ML SYR SQ SCH (08:14)
[2021-12-31] MEDS: lisinopril 5 MG TAB PO SCH (08:15)
[2021-12-31] MEDS: MULTIVITAMIN TAB PO SCH (08:16)
--- NOTE | 2021-12-31 14:36 | Discharge Summary ---
Date of Service December 31, 2021 Admission HPI Per Admitting Provider Nevaeh is a 46 year-old female who presented to ED with complaint of right upper abdominal pain that began about 3 days ago off and on and has now been constant severe pain for last 18 hours with associated nausea. Some radiation around to her upper back. No vomiting. Denies fever or chills. Has had diarrhea for last few days. Denies of any chest pain, shortness of breath, vomiting, blood in stools, acholic stools, generalized itching, jaundice, difficulty urinating, or blood in urine. Denies of any prior gallbladder issues. History of c- section and ablations. No blood thinning agents. Principal Diagnosis Acute calculous cholecystitis Discharge Exam Constitutional WD/WN, vitals as above + morbidly obese; no acute distress and not ill appearing Respiratory normal respiratory effort; no respiratory distress Gastrointestinal (Abdomen) Inspection/Auscultation: abdomen normal to inspection, + abdominal surgical incision (covered with clean and dry dressings) and + abdominal surgical drain present (serosanguineous); abdomen not distended Percussion/Palpation: abdomen soft; abdomen nontender, no guarding and abdomen not rigid Skin no rashes, warm and dry Psychiatric A+Ox3, euthymic affect Discharge Data Allergies Allergy/AdvReac Type Severity Reaction Status Date / Time No Known Allergies Allergy Unverified 12/29/21 07:06 Consultations 12/29/21 07:58 ED Decision to Admit Stat Procedures Performed Operation Date: 12/29/21 10:15 Actual Procedures p Laparoscopic Subtotal Cholecystectomy with Cholangiogram(Not Applicable) - Seble Cai MD Ordered Studies 12/29/21 [place] cholangiogram OR Routine 12/29/21 05:20 US gallbladder Urgent Hospital Course (1) Acute cholecystitis: (2) Common bile duct dilatation: Patient taken to operating room for laparoscopic cholecystectomy and intraoperative cholangiogram. She was found to have significant cholecystitis with gangrenous cholecystitis and underwent laparoscopic subtotal cholecystectomy. A prashant drain was placed. She tolerated procedure well and was transferred to recovery then to medical /surgical floor for postop care. Diet advanced to clear liquids, IV morphine prn pain, activity as tolerated, SCDs and Lovenox for DVT prophylaxis, incentive spirometry, and her home medications were continued. POD # 1 afebrile, vss, postop pain controlled, prashant drain with 210 cc output, bloody serosanguineous. Diet was advanced as tolerated. POD # 2, afebrile, vss, minimal postop pain not needing any pain medication, prashant drain with 110 cc output serosanguineous. Tolerated reg diet. Patient was discharged home on POD # 2 in stable condition with prashant drain and to follow-up in surgery office in 1 week. Total Time Total Time Spent Total Time Spent (In Minutes): 30 Total Time Includes: Examination of the Patient, Discharge Planning and Medication Reconciliation Discharge Plan Discharge Items Patient Disposition: Home - Self-Care Reason For Visit: ACUTE CALCULOUS CHOLECYSTITIS Discharge Diagnosis: Acute calculous cholecystitis Condition on Discharge: Good Activity: Per Instructions section Non-emergency contact: Primary Care Provider and Surgeon Call non-emergency contact if: you have any medication questions, your pain is not controlled, your pain is worsening, you have a fever, your temperature is above 101, your wound has increased redness, your wound has increased drainage and your wound pain has increased Follow-up/Referrals: Seble Cai MD [Physician] - 01/10/22 12:45 pm (1 week follow-up [address] ) PCP,NO [Primary Care Provider] - Diet: Regular Addtl Attending Provider Instructions: Post-Surgical ~Discharge Instructions Activity Recommendations: - lifting limitation: (20 pounds for 4 weeks), - exercise/sex/sports limit: (nonstrenuous for 2 weeks), - driving or machine use limit: (none for 1 week or until pain free and no longer taking narcotic pain medication), - Shower/bathe limit: (may shower beginning tomorrow) Diet: - Resume previous diet SPECIAL CARE INSTRUCTIONS: - May shower tomorrow. Sponge bath around drain site. - Leave steri strips on for one week and then remove. They may fall off on their own that is okay. - Keep record of output of your surgical drain and bring record with you to the office. - Call the surgeon's office with any questions or concerns - - (ex. temperature higher than 101 degrees F, excessive bleeding or pain). MEDICATIONS: - Resume previous medications unless instructed otherwise by your surgeon. - May alternate extra strength Tylenol and Ibuprofen as needed for pain -650 mg Tylenol every 6 hours as needed - Ibuprofen 600 mg every 6 hours as needed take with food - Take antibiotic as prescribed for 5 days FOLLOW UP VISIT: - If not already scheduled, please call the office to schedule a one week follow-up appointment. Office number Pending Studies at Discharge: Yes (pathology, will be reviewed at follow-up visit) Stand-Alone Forms: My [facility], Smoking Cessation Medications and DC Order Prescriptions: New ciprofloxacin HCl 500 mg tablet 500 mg PO BID Qty: 10 RF: 0 Continued lisinopril 5 mg Tablet 5 mg PO DAILY RF: 0 multivitamin Capsule 1 cap PO DAILY RF: 0 Discharge Orders: Discharge Order (Routine); Ordered 12/31/21 Ordered By: Linda Bull/Other Patient Handouts: Closed Suction Drainage Tube, Christiano Mcbride Drain Tube Dc, Post Op Drain Emptying Steps Admission Data Admit Date/Time: 12/29/21 16:12 Attending Provider: Seble Cai Admit Provider: Seble Cai Primary Care Provider: PCP,NO Other Providers: Seble Cai Other Interventions: Discharge Summary Assessment (RN) Last Done: 12/31/21 12:39
--- NOTE | 2022-01-06 09:26 | Surgery Consultation ---
Date of Consultation January 06, 2022 Assessment & Plan (1) Acute cholecystitis: (2) Common bile duct dilatation: (3) Post-op bleeding: pt is a 46 yaer-old female who presents to Er with blood in PRASHANT drainage ball, IMP: post-op bleeding, plan, base on H/P, labs, CT scan no active bleeding now, I recommend to admit pt to hospital for conservative treatment first, NPO, IV fluid, repeat labs in morning, no emergent surgery now, pt understood, she agrees with the plan, I answered all questions, will F/U, Plan Patient taken to operating room for laparoscopic cholecystectomy and intraoperative cholangiogram. She was found to have significant cholecystitis with gangrenous cholecystitis and underwent laparoscopic subtotal cholecystectomy. A prashant drain was placed. She tolerated procedure well and was transferred to recovery then to medical /surgical floor for postop care. Diet advanced to clear liquids, IV morphine prn pain, activity as tolerated, SCDs and Lovenox for DVT prophylaxis, incentive spirometry, and her home medications were continued. POD # 1 afebrile, vss, postop pain controlled, prashant drain with 210 cc output, bloody serosanguineous. Diet was advanced as tolerated. POD # 2, afebrile, vss, minimal postop pain not needing any pain medication, prashant drain with 110 cc output serosanguineous. Tolerated reg diet. Patient was discharged home on POD # 2 in stable condition with prashant drain and to follow-up in surgery office in 1 week. History of Present Illness Reason for Consultation: blood in PRASHANT drainage ball Requesting Physician: SJ Castillo Attending Physician: Seble Cai MD History of Present Illness CC: blood in PRASHANT drainage ball HPI: pt is a 46 year-old female who presents to to Er with one hour history blood in PRASHANT drainage ball, about 20 ml red blood in PRASHANT drainage ball, pt said pt was doing fine after discharged home until this morning, she found some blood in PRASHANT drainage ball, and some blood around dressing, pt denies abdominal pain, no fever, no dizziness, Allergies Allergy/AdvReac Type Severity Reaction Status Date / Time No Known Allergies Allergy Unverified 12/29/21 07:06 Home Medications Medication Instructions Recorded Confirmed Type lisinopril 5 mg tablet 5 mg PO QAM 12/29/21 01/06/22 History ciprofloxacin HCl 500 mg tablet 500 mg PO BID #10 tabs 12/31/21 01/06/22 Rx multivitamin 1 tab PO QAM 01/06/22 01/06/22 History Patient History Medical History (Updated 01/06/22 @ 10:49 by Seble Cai MD) High blood pressure Morbid obesity Surgical History (Updated 01/06/22 @ 07:48 by SJ Bustamante) History of adenoidectomy History of Hx of cholecystectomy Social History Smoking Status: Former smoker Hx Alcohol Use: Yes (occasionally) Alcohol type: wine Hx Substance Use: No Preferred Language: Greek Communication Ability: Effective Appeals Referee Required: No Beliefs That Will Affect Care: None Current Living Situation: Spouse Feels Safe at Home: Yes Assistive Devices: None Review of Systems Constitutional: obesity Eyes: as per Subjective / HPI Respiratory: as per Subjective / HPI Cardiovascular: as per Subjective / HPI Gastrointestinal: S/P lpa subtotal cholecystectomy, with PRASHANT drainage Musculoskeletal: as per Subjective / HPI Neurologic: as per Subjective / HPI Psychiatric: as per Subjective / HPI Endocrine: as per Subjective / HPI Hematologic / Lymphatic: as per Subjective / HPI Physical Exam Constitutional: WD/WN, vitals as above Eyes: PERRL, conjunctivae normal, anicteric sclerae Neck: trachea midline, no thyromegaly Respiratory: normal respiratory effort, lungs clear to auscultation Cardiovascular: RRR, no murmur, no edema Gastrointestinal (Abdomen): soft, NT, Nd, prashant intact, 20ml blood in ball, Musculoskeletal: no cyanosis or clubbing, extremities motor strength 5/5 Neurologic: patellar DTR's 2+ bilat, sensation intact Psychiatric: A+Ox3, euthymic affect Results & Data ([facility]) Vital Signs (Past 12 Hours) T 36.6, HR 85-90, BP 151/88, RR 16 Laboratory Results HGB 12.[address] DOSE: 1353.86 mGycm TECHNIQUE: Standard CT of the Abdomen and Pelvis was performed with IV contrast. A dose lowering technique was utilized adhering to the principles of ALARA. Contrast Volume: Optiray 320, 95 ml. The patient did not receive oral contrast. FINDINGS: Lung base: The lung bases are clear. Abdominal cavity: There is no evidence for abdominal mass, adenopathy or ascites. Liver: There is homogeneous decreased attenuation of the liver parenchyma characteristic of fatty infiltration. There is no evidence for enhancing mass lesion. Spleen: There is homogeneous attenuation of the splenic parenchyma. There is no enhancing mass lesion. Pancreas: There is homogeneous attenuation of the pancreatic parenchyma. There is no evidence for mass lesion or peripancreatic fluid collection. Gall Bladder: The patient is status post cholecystectomy with a PRASHANT drain still in place. Its tip is in the gallbladder fossa with minimal fluid present at this site. This is characteristic of postsurgical change. No enhancing abscess or walled off fluid collection is identified. Adrenal glands: The adrenal glands are normal in size and attenuation. There is no evidence for enhancing mass lesion. Kidneys: There is homogeneous attenuation of the renal parenchyma bilaterally. There is no evidence for renal calculus or hydronephrosis. There is no evidence for enhancing mass. Bowel: The bowel loops are normally placed within the abdomen and pelvis without evidence for dilatation or obstruction. There is no evidence for mass lesion. There are no inflammatory changes present. There is no evidence for free air. There is a normal appendix in the right lower quadrant. Bladder: The bladder is within normal limits with no evidence for focal mass, calculus or diverticulum. : There is no evidence for pelvic mass or adenopathy. There is a small to moderate amount of fluid seen within the cul-de-sac. However, is not increased attenuation to suggest hemorrhage. Vasculature: There is no evidence for aneurysmal dilatation of the abdominal aorta. Osseous structures: There is no acute osseous pathology. Degenerative changes are seen within the spine. IMPRESSION: 1. Status post cholecystectomy with PRASHANT drain still in place. The tip of the isabella in is in the gallbladder fossa with minimal postsurgical changes present at this site. There is no evidence for enhancing abscess or walled off fluid collection. 2. There is a small to moderate amount of free fluid seen within the cul-de-sac which does not demonstrate increased attenuation and is not characteristic of hemorrhage. 3. Fatty infiltration of the liver.
--- NOTE | 2022-01-27 06:51 | Coding Query ---
BMI To promote full compliance with coding requirements relating to patient care, physician participation is requested in all cases of hims coder uncertainty. Please assist us with the question(s) below: Please place an X within the parenthesis (x). If other, please document: Morbidly obese was documented in H&P and progress notes. Anesthesiology documented morbid obesity. BMI 51.7 in record. If the patient's weight is significant, please check the box that provides an associated diagnosis: ( ) Overweight/Obese ( ) Obesity (X ) Morbid obesity ( ) Obesity Hypoventilation Syndrome (OHS) ( ) Heathy weight, not significant ( ) Underweight/Thin ( ) Other, please specify Thank you Daphne LOCKWOOD
== END 2021-12-31 13:42 | disposition home or self-care (01) | DRG 418 ==
LOC: ED 05:07 → OR 11:08 → 3N 16:12

== ENCOUNTER 2022-01-06 07:01 | Observation (INO) ==
--- NOTE | 2022-01-06 07:49 | Emergency Department Note ---
History of Present Illness General Chief complaint: Hematuria Stated complaint: BLOOD IN URINE Time Seen by Provider: 01/06/22 07:32 History of Present Illness Maximum Pain Intensity: 2 This is a 46-year-old female who recently had a laparoscopic cholecystectomy on 12/29/2021, discharged 2 days after surgery with a SHELDON drain, presents to the emergency department with an increase in volume and blood content of the drainage from her SHELDON drain. This morning, she also notes that the dressing around the tubing of the drain was saturated with bloody material. Over the past few days, she has been noting about 30 mL of mostly clear blood-tinged fluid from the drain. She does not have an increase in pain, but currently still has a 2 or 3 out of 10 pain in the same right upper quadrant distribution that she has been having. She denies any fevers, chills, urinary symptoms, hematuria, nausea, vomiting, chest pain, shortness of breath. She has not had anything to eat or drink this morning. Home Medications Medication Instructions Recorded Confirmed Type lisinopril 5 mg tablet 5 mg PO QAM 12/29/21 01/06/22 History ciprofloxacin HCl 500 mg tablet 500 mg PO BID #10 tabs 12/31/21 01/06/22 Rx multivitamin 1 tab PO QAM 01/06/22 01/06/22 History Allergies Allergy/AdvReac Type Severity Reaction Status Date / Time No Known Allergies Allergy Unverified 12/29/21 07:06 Past Med/Surg History Medical History (Updated 01/06/22 @ 15:12 by Seble Cai MD) High blood pressure Morbid obesity Surgical History (Updated 01/06/22 @ 07:48 by SJ Bustamante) History of adenoidectomy History of Hx of cholecystectomy Social History Smoking Status: Former smoker Hx Alcohol Use: Yes (occasionally) Alcohol type: wine Hx Substance Use: No Preferred Language: Swedish Communication Ability: Effective Behavioral Psychologist Required: No Beliefs That Will Affect Care: None Current Living Situation: Spouse Feels Safe at Home: Yes Assistive Devices: None Review of Systems See HPI for pertinent positives & negatives. and A total of 10 systems reviewed and were otherwise negative Physical Exam Vital Signs Vital Signs - 24 hr 01/06/22 07:02 01/06/22 08:04 01/06/22 10:36 Temperature 96.8 F L 100.0 F H Temperature Source Temporal Artery Scan Oral Pulse Rate 87 Pulse Rate [Finger] 79 79 Respiratory Rate 14 18 18 Respiratory Effort / Characteristics Non-Labored Respiratory Depth Normal Normal Respiratory Pattern Regular Blood Pressure 165/87 H Blood Pressure [Right Arm] 168/110 H 180/77 H Blood Pressure Mean 113 Blood Pressure Mean [Right Arm] 129 111 Pulse Oximetry 99 98 94 Oxygen Delivery Method Room Air Room Air Room Air Sepsis Recent Fever Within 48 Hours No Sepsis New/Unexplained Change in Mental Status No Sepsis Action Taken by Nursing No Action Required 01/06/22 12:19 01/06/22 13:53 01/06/22 15:00 Temperature 98.4 F Temperature Source Oral Pulse Rate Pulse Rate [Finger] 87 82 85 Respiratory Rate 18 18 18 Respiratory Effort / Characteristics Non-Labored Non-Labored Non-Labored Respiratory Depth Normal Normal Normal Respiratory Pattern Blood Pressure Blood Pressure [Right Arm] 132/103 H 154/77 H 149/76 H Blood Pressure Mean Blood Pressure Mean [Right Arm] 112 102 100 Pulse Oximetry 98 98 96 Oxygen Delivery Method Room Air Room Air Sepsis Recent Fever Within 48 Hours Sepsis New/Unexplained Change in Mental Status Sepsis Action Taken by Nursing CONSTITUTIONAL: Well developed, well nourished, in no acute distress. HEAD: Normocephalic, atraumatic. EYES: PERRL, conjunctivae normal, extraocular muscles intact. No scleral icterus ENMT: External ears normal. Nose with normal external appearance, no mukul estion. NECK: Full active range of motion. RESPIRATORY: Breathing unlabored and symmetric. Lungs clear to auscultation bilaterally. No wheeze, rales, or rhonchi. CARDIOVASCULAR: Regular rate and rhythm. No murmurs, rubs, or gallops. CHEST: Nontender, no crepitus. ABDOMEN: Normal bowel sounds. SHELDON drain has blood in the tubing and in the drain itself. There is some blood soaking into the surrounding 4 x 4 dressing where the tubing exits the abdomen. There is no surrounding erythema at the exit site. There is tenderness in the right upper quadrant. MUSCULOSKELETAL: Moves all extremities at all joints without pain or difficulty. No cyanosis or edema. SKIN: [place], warm, dry. NEUROLOGIC: Alert and oriented x 3. No acute motor or sensory deficits. Cranial nerves grossly intact. PSYCHIATRIC: Appropriate. Normal affect. Course Consultations Consultation #1: Spoke with Dr. Cai (general surgery) who does recommend obtaining a new CT scan and he will see the patient at bedside. Time: 08:32 Consultation #2: Spoke with Dr. aCi again who evaluated the patient at bedside and would like to admit her for observation. He is aware of her most recent temperature being 100.0 Administered Medications Discontinued Medications Ioversol (Optiray 320 100ml) 95 ml IV ONCE ONE Stop: 01/06/22 09:33 Last Admin: 01/06/22 09:26 Dose: 95 ml Documented By: HONEY Lisinopril (Lisinopril 5 Mg Tab) 5 mg PO NOW ONE Stop: 01/06/22 15:11 Last Admin: 01/06/22 15:36 Dose: 5 mg Documented By: LUIS Medical Decision Making Differential Diagnosis Postop hemorrhage, infection, among other pathology Medical Records Attestation: I reviewed the patient's medical records. Laboratory Data Result diagrams: 01/06/22 07:53 01/06/22 09:42 Lab Results 01/06/22 01/06/22 01/06/22 Range/Units 07:53 07:53 09:10 WBC 10.07 (4.8-10.8) K/ul RBC 4.22 (3.93-5.22) M/uL Hgb 12.6 (12.0-16.0) g/dl Hct 39.8 (34.1-44.9) % MCV 94.3 (80.0-100.0) fL MCH 29.9 (25.0-34.0) pg MCHC 31.7 L (32.0-36.0) g/dL RDW Std Deviation 50.2 H (36.4-46.3) fL RDW Coeff of Amara 14.5 (11.5-14.5) % Plt Count 222 (130-400) K/uL MPV 13.1 H (9.4-12.3) fL Immature Gran % (Auto) 0.7 % Neut % (Auto) 73.4 % Lymph % (Auto) 16.9 % Dane % (Auto) 6.6 % Eos % (Auto) 2.0 % Baso % (Auto) 0.4 % Neut # (Auto) 7.40 H (1.4-6.5) K/uL Lymph # (Auto) 1.70 (1.2-3.4) K/uL Dane # (Auto) 0.66 (0.24-0.82) K/uL Eos # (Auto) 0.20 (0-0.50) K/uL Baso # (Auto) 0.04 (0-0.2) K/uL Immature Gran # (Auto) 0.07 H (0.00-0.02) K/uL Sodium 140 (136-145) mmol/L Potassium TNP Chloride 107 (98-107) mmol/L Carbon Dioxide 24 (21-32) mmol/L Anion Gap 9 (3-11) BUN 12 (6-23) mg/dl Creatinine 0.61 (0.6-1.2) mg/dl Est Cr Clr Drug Dosing 162.8 ml/min Est GFR ( Amer) 127.8 ml/min Est GFR (Non-Af Amer) 110.3 ml/min BUN/Creatinine Ratio 19.7 (10-20) Glucose 113 H (70-99(Fasting)) mg/dl Calcium 8.5 (8.5-10.1) mg/dl Total Bilirubin 0.4 (0.2-1.0) mg/dl AST TNP ALT 20 (7-52) U/L Alkaline Phosphatase 88 (34-104) U/L Total Protein 7.0 (6.0-8.3) gm/dl Albumin 3.7 (3.4-5.0) gm/dl Globulin 3.3 (2.5-4.0) gm/dl Albumin/Globulin Ratio 1.1 (0.9-2) Urine Color Yellow Urine Appearance Clear (Clear) Urine pH 7.0 (4.5-7.5) Ur Specific [place] 1.014 (1.000-1.030) Urine Protein Negative (Negative) Urine Glucose (UA) Negative (Negative) Urine Ketones Negative (Negative) Urine Blood Negative (Negative) Urine Nitrite Negative (Negative) Urine Bilirubin Negative (Negative) Urine Urobilinogen Negative (Negative) Ur Leukocyte Esterase Negative (Negative) SARS-CoV-2, RNA, NAAT (NEGATIVE) 01/06/22 01/06/22 Range/Units 09:42 12:18 WBC (4.8-10.8) K/ul RBC (3.93-5.22) M/uL Hgb (12.0-16.0) g/dl Hct (34.1-44.9) % MCV (80.0-100.0) fL MCH (25.0-34.0) pg MCHC (32.0-36.0) g/dL RDW Std Deviation (36.4-46.3) fL RDW Coeff of Amara (11.5-14.5) % Plt Count (130-400) K/uL MPV (9.4-12.3) fL Immature Gran % (Auto) % Neut % (Auto) % Lymph % (Auto) % Dane % (Auto) % Eos % (Auto) % Baso % (Auto) % Neut # (Auto) (1.4-6.5) K/uL Lymph # (Auto) (1.2-3.4) K/uL Dane # (Auto) (0.24-0.82) K/uL Eos # (Auto) (0-0.50) K/uL Baso # (Auto) (0-0.2) K/uL Immature Gran # (Auto) (0.00-0.02) K/uL Sodium (136-145) mmol/L Potassium 4.2 Chloride (98-107) mmol/L Carbon Dioxide (21-32) mmol/L Anion Gap (3-11) BUN (6-23) mg/dl Creatinine (0.6-1.2) mg/dl Est Cr Clr Drug Dosing ml/min Est GFR ( Amer) ml/min Est GFR (Non-Af Amer) ml/min BUN/Creatinine Ratio (10-20) Glucose (70-99(Fasting)) mg/dl Calcium (8.5-10.1) mg/dl Total Bilirubin (0.2-1.0) mg/dl AST 12 L ALT (7-52) U/L Alkaline Phosphatase (34-104) U/L Total Protein (6.0-8.3) gm/dl Albumin (3.4-5.0) gm/dl Globulin (2.5-4.0) gm/dl Albumin/Globulin Ratio (0.9-2) Urine Color Urine Appearance (Clear) Urine pH (4.5-7.5) Ur Specific [place] (1.000-1.030) Urine Protein (Negative) Urine Glucose (UA) (Negative) Urine Ketones (Negative) Urine Blood (Negative) Urine Nitrite (Negative) Urine Bilirubin (Negative) Urine Urobilinogen (Negative) Ur Leukocyte Esterase (Negative) SARS-CoV-2, RNA, NAAT NEGATIVE (NEGATIVE) Imaging Data Radiologist's Impression: Abdomen/Pelvis CT 01/06/22 08:24 CT abd pelvis IV con only CLINICAL HISTORY: recent cholecystectomy, increase in SHELDON drain blood COMPARISON STUDY: No previous studies for comparison. CT DOSE: 1353.86 mGycm TECHNIQUE: Standard CT of the Abdomen and Pelvis was performed with IV contrast. A dose lowering technique was utilized adhering to the principles of ALARA. Contrast Volume: Optiray 320, 95 ml. The patient did not receive oral contrast. FINDINGS: Lung base: The lung bases are clear. Abdominal cavity: There is no evidence for abdominal mass, adenopathy or ascites. Liver: There is homogeneous decreased attenuation of the liver parenchyma characteristic of fatty infiltration. There is no evidence for enhancing mass lesion. Spleen: There is homogeneous attenuation of the splenic parenchyma. There is no enhancing mass lesion. Pancreas: There is homogeneous attenuation of the pancreatic parenchyma. There is no evidence for mass lesion or peripancreatic fluid collection. Gall Bladder: The patient is status post cholecystectomy with a SHELDON drain still in place. Its tip is in the gallbladder fossa with minimal fluid present at this site. This is characteristic of postsurgical change. No enhancing abscess or walled off fluid collection is identified. Adrenal glands: The adrenal glands are normal in size and attenuation. There is no evidence for enhancing mass lesion. Kidneys: There is homogeneous attenuation of the renal parenchyma bilaterally. There is no evidence for renal calculus or hydronephrosis. There is no evidence for enhancing mass. Bowel: The bowel loops are normally placed within the abdomen and pelvis without evidence for dilatation or obstruction. There is no evidence for mass lesion. There are no inflammatory changes present. There is no evidence for free air. T here is a normal appendix in the right lower quadrant. Bladder: The bladder is within normal limits with no evidence for focal mass, calculus or diverticulum. : There is no evidence for pelvic mass or adenopathy. There is a small to moderate amount of fluid seen within the cul-de-sac. However, is not increased attenuation to suggest hemorrhage. Vasculature: There is no evidence for aneurysmal dilatation of the abdominal aorta. Osseous structures: There is no acute osseous pathology. Degenerative changes are seen within the spine. IMPRESSION: 1. Status post cholecystectomy with SHELDON drain still in place. The tip of the drain is in the gallbladder fossa with minimal postsurgical changes present at this site. There is no evidence for enhancing abscess or walled off fluid collection. 2. There is a small to moderate amount of free fluid seen within the cul-de-sac which does not demonstrate increased attenuation and is not characteristic of hemorrhage. 3. Fatty infiltration of the liver. ACT 112: Negative or not required by law. Electronically signed by: Luke Haro M.D. 01/06/2022 9:52 AM MDM Narrative 46-year-old female returns to the emergency department 8 days after a laparoscopic cholecystectomy with increase in blood drainage from the SHELDON drain as well as blood soaking the gauze around the tubing where it exits the abdomen. On exam, patient is overall well-appearing in no acute distress. There is gross blood in the SHELDON drain, tubing, and around the site with blood soaking into the gauze. Patient does have some tenderness in the right upper quadrant, although she admits that this is likely similar to pain that she would have had before the bleeding began. Hemodynamically stable, somewhat hypertensive if anything. Repeat blood work today demonstrates an improvement of her leukocytosis, now 10.07, slight decrease in hemoglobin at 12.6 from 13.3 at discharge. Urine is clean, no evidence of infection or blood. No electrolyte disturbance, normal renal function. Bilirubin is normal. I spoke with Dr. Cai, patient's general surgeon with [facility] who recommended a repeat CT scan which was obtained. This was not overly concerning for active hemorrhage as described above. Dr. Cai evaluated the patient at bedside and evaluated the repeat CT scan. At this time, he would like to admit the patient for observation. Patient's temperature did increase to 100.0 at time of admission, and I did notify Dr. Cai of this finding which he acknowledged. Patient will be admitted for postop bleeding. Impression & Plan Post-op bleeding Discharge Plan Visit Data Chief Complaint: Hematuria Stated Complaint: BLOOD IN URINE ED Provider: Rachel Gama ED Midlevel Provider: Baljit Barragan. Discharge Problem: Post-op bleeding Patient Disposition: Admitted As Inpatient Discharge Instructions Interventions: ED Discharge Assessment Last Done: 01/06/22 15:54 Forms Stand Alone Forms: My [facility] Prescriptions Prescriptions: No Action lisinopril 5 mg Tablet 5 mg PO QAM ciprofloxacin HCl 500 mg tablet 500 mg PO BID Qty: 10 0RF multivitamin Tablet 1 tab PO QAM Referrals Referrals: PCP,NO [Physician] -
[2022-01-06 08:00] LABS: Hematocrit (blood only) 39.8 % (34.1-44.9); Hemoglobin 12.6 g/dl (12.0-16.0); Mean Corpuscular Hemoglobin 29.9 pg (25.0-34.0); Mean Corpuscular Hgb Conc 31.7 g/dL (32.0-36.0); Mean Corpuscular Volume 94.3 fL (80.0-100.0); RDW Coefficient of Variation 14.5 % (11.5-14.5); RDW Standard Deviation 50.2 fL (36.4-46.3); Red Blood Count 4.22 M/uL (3.93-5.22); White Blood Count 10.07 K/ul (4.8-10.8)
[2022-01-06 08:19] LABS: Mean Platelet Volume 13.1 fL (9.4-12.3); Platelet Count 222 K/uL (130-400)
[2022-01-06 08:41] LABS: Alanine Aminotransferase 20 U/L (7-52); Albumin Globulin Ratio 1.1 (0.9-2); Albumin Level 3.7 gm/dl (3.4-5.0); Alkaline Phosphatase 88 U/L (34-104); Anion Gap 9 (3-11); BUN Creatinine Ratio 19.7 (10-20); Bilirubin,Total 0.4 mg/dl (0.2-1.0); Blood Urea Nitrogen 12 mg/dl (6-23); Calcium 8.5 mg/dl (8.5-10.1); Carbon Dioxide 24 mmol/L (21-32); Chloride 107 mmol/L (98-107); Creatinine Clr Calc Pharmacy 162.8 ml/min; Est GFR (African American) 127.8 ml/min; Est GFR (Non-African American) 110.3 ml/min; Globulin 3.3 gm/dl (2.5-4.0); Glucose 113 mg/dl (70-99(Fasting)); Sodium 140 mmol/L (136-145)
[2022-01-06 09:05] LABS: Basophils # (auto) 0.04 K/uL (0-0.2); Basophils % (auto) 0.4 %; Immature Granulocytes # (auto) 0.07 K/uL (0.00-0.02); Immature Granulocytes % (auto) 0.7 %; Lymphocytes % (auto) 16.9 %; Monocytes # (auto) 0.66 K/uL (0.24-0.82); Monocytes % (auto) 6.6 %; Neutrophils % (auto) 73.4 %
[2022-01-06 09:32] LABS: Appearance Urine Clear (Clear); Bilirubin Urine Negative (Negative); Blood Urine Negative (Negative); Color Urine Yellow; Glucose Urine UA Negative (Negative); Ketones Urine Negative (Negative); Leukocyte Esterase Urine Negative (Negative); Nitrite Urine Negative (Negative); Protein Urine Negative (Negative); Specific Gravity Urine 1.014 (1.000-1.030); Urobilinogen Urine Negative (Negative)
[2022-01-06] MEDS ORDERED: OPTIRAY 320 100ml IV ONE (09:32)
--- NOTE | 2022-01-06 09:54 | CT Scan Report ---
CT abd pelvis IV con only CLINICAL HISTORY: recent cholecystectomy, increase in SHELDON drain blood COMPARISON STUDY: No previous studies for comparison. CT DOSE: 1353.86 mGycm TECHNIQUE: Standard CT of the Abdomen and Pelvis was performed with IV contrast. A dose lowering audie hnique was utilized adhering to the principles of ALARA. Contrast Volume: Optiray 320, 95 ml. The patient did not receive oral contrast. FINDINGS: Lung base: The lung bases are clear. Abdominal cavity: There is no evidence for abdominal mass, adenopathy or ascites. Liver: There is homogeneous decreased attenuation of the liver parenchyma characteristic of fatty inf iltration. There is no evidence for enhancing mass lesion. Spleen: There is homogeneous attenuation of the splenic parenchyma. There is no enhancing mass lesion . Pancreas: There is homogeneous attenuation of the pancreatic parenchyma. There is no evidence for mas s lesion or peripancreatic fluid collection. Gall Bladder: The patient is status post cholecystectomy with a SHELDON drain still in place. Its tip is i n the gallbladder fossa with minimal fluid present at this site. This is characteristic of postsurgic al change. No enhancing abscess or walled off fluid collection is identified. Adrenal glands: The adrenal glands are normal in size and attenuation. There is no evidence for enhan cing mass lesion. Kidneys: There is homogeneous attenuation of the renal parenchyma bilaterally. There is no evidence f or renal calculus or hydronephrosis. There is no evidence for enhancing mass. Bowel: The bowel loops are normally placed within the abdomen and pelvis without evidence for dilatat ion or obstruction. There is no evidence for mass lesion. There are no inflammatory changes present. There is no evidence for free air. There is a normal appendix in the right lower quadrant. Bladder: The bladder is within normal limits with no evidence for focal mass, calculus or diverticulu m. : There is no evidence for pelvic mass or adenopathy. There is a small to moderate amount of fluid seen within the cul-de-sac. However, is not increased attenuation to suggest hemorrhage. Vasculature: There is no evidence for aneurysmal dilatation of the abdominal aorta. Osseous structures: There is no acute osseous pathology. Degenerative changes are seen within the spi ne. IMPRESSION: 1. Status post cholecystectomy with SHELDON drain still in place. The tip of the drain is in the gallbladd er fossa with minimal postsurgical changes present at this site. There is no evidence for enhancing a bscess or walled off fluid collection. 2. There is a small to moderate amount of free fluid seen within the cul-de-sac which does not demons trate increased attenuation and is not characteristic of hemorrhage. 3. Fatty infiltration of the liver. ACT 112: Negative or not required by law. Electronically signed by: Luke Haro M.D. 01/06/2022 9:52 AM
[2022-01-06 10:43] LABS: Potassium 4.2 mmol/L (3.5-5.1)
[2022-01-06] MEDS ORDERED: lisinopril 5 MG TAB PO ONE (15:10)
--- NOTE | 2022-01-06 15:10 | Surgery Progress Note ---
Date of Service January 06, 2022 Assessment & Plan (1) SHELDON drain bleeding: Plan: pt is a 46 year-old female who presents to ER with blood in SEHLDON drainage, pt is post-op lap subtotal cholecystectomy , POD 7 days, no active bleeding now, I reviewed CT scan with pt, IMP: blood in SHELDON, Plan, I recommend to admit pt to hospital, no emergent surgery indication now, conservative treatment, clear diet , iv fluid, iv antibiotic, repeat labs in morning, will F/U, D/W ER attending, pt agrees with the plan, I answered all questions, Subjective recheck pt at ER, pt is doing fine, no abdominal pain, no dizziness, SHELDON 10ml b loody fluid in 4 hours, Physical Exam Constitutional: WD/WN, vitals as above Eyes: PERRL, conjunctivae normal, anicteric sclerae Neck: trachea midline, no thyromegaly Respiratory: normal respiratory effort, lungs clear to auscultation Cardiovascular: RRR, no murmur, no edema Gastrointestinal (Abdomen): soft, NT, Nd, SHELDON intact, some bloody fluid at SHELDON ball, no active bleeding, Musculoskeletal: no cyanosis or clubbing, extremities motor strength 5/5 Neurologic: patellar DTR's 2+ bilat, sensation intact Psychiatric: A+Ox3, euthymic affect Results & Data ([facility]) Vital Signs (Past 12 Hours) Vital Signs Temp Pulse Pulse Resp BP BP Pulse Ox 01/06/22 13:53 82 18 154/77 H 98 01/06/22 12:19 36.9 C 87 18 132/103 H 98 01/06/22 10:36 37.8 C H 79 18 180/77 H 94 01/06/22 08:04 79 18 168/110 H 98 01/06/22 07:02 36.0 C L 87 14 165/87 H 99 O2 Del Method 01/06/22 13:53 Room Air 01/06/22 12:19 Room Air 01/06/22 10:36 Room Air 01/06/22 08:04 Room Air 01/06/22 07:02 Room Air Laboratory Results Abnormal lab results 01/06/22 01/06/22 01/06/22 Range/Units 07:53 07:53 09:42 MCHC 31.7 L (32.0-36.0) g/dL RDW Std Deviation 50.2 H (36.4-46.3) fL MPV 13.1 H (9.4-12.3) fL Neut # (Auto) 7.40 H (1.4-6.5) K/uL Immature Gran # (Auto) 0.07 H (0.00-0.02) K/uL Glucose 113 H (70-99(Fasting)) mg/dl AST 12 L (13-39) U/L Diagnostic Findings CT abd pelvis IV con only CLINICAL HISTORY: recent cholecystectomy, increase in SHELDON drain blood COMPARISON STUDY: No previous studies for comparison. CT DOSE: 1353.86 mGycm TECHNIQUE: Standard CT of the Abdomen and Pelvis was performed with IV contrast. A dose lowering technique was utilized adhering to the principles of ALARA. Contrast Volume: Optiray 320, 95 ml. The patient did not receive oral contrast. FINDINGS: Lung base: The lung bases are clear. Abdominal cavity: There is no evidence for abdominal mass, adenopathy or ascites. Liver: There is homogeneous decreased attenuation of the liver parenchyma characteristic of fatty infiltration. There is no evidence for enhancing mass lesion. Spleen: There is homogeneous attenuation of the splenic parenchyma. There is no enhancing mass lesion. Pancreas: There is homogeneous attenuation of the pancreatic parenchyma. There is no evidence for mass lesion or peripancreatic fluid collection. Gall Bladder: The patient is status post cholecystectomy with a SHELDON drain still in place. Its tip is in the gallbladder fossa with minimal fluid present at this site. This is characteristic of postsurgical change. No enhancing abscess or walled off fluid collection is identified. Adrenal glands: The adrenal glands are normal in size and attenuation. There is no evidence for enhancing mass lesion. Kidneys: There is homogeneous attenuation of the renal parenchyma bilaterally. There is no evidence for renal calculus or hydronephrosis. There is no evidence for enhancing mass. Bowel: The bowel loops are normally placed within the abdomen and pelvis without evidence for dilatation or obstruction. There is no evidence for mass lesion. There are no inflammatory changes present. There is no evidence for free air. T here is a normal appendix in the right lower quadrant. Bladder: The bladder is within normal limits with no evidence for focal mass, calculus or diverticulum. : There is no evidence for pelvic mass or adenopathy. There is a small to moderate amount of fluid seen within the cul-de-sac. However, is not increased attenuation to suggest hemorrhage. Vasculature: There is no evidence for aneurysmal dilatation of the abdominal aorta. Osseous structures: There is no acute osseous pathology. Degenerative changes are seen within the spine. IMPRESSION: 1. Status post cholecystectomy with SHELDON drain still in place. The tip of the drain is in the gallbladder fossa with minimal postsurgical changes present at this site. There is no evidence for enhancing abscess or walled off fluid collection. 2. There is a small to moderate amount of free fluid seen within the cul-de-sac which does not demonstrate increased attenuation and is not characteristic of hemorrhage. 3. Fatty infiltration of the liver.
[2022-01-06] MEDS ORDERED: LACTATED RINGER'S 1,000 ML IV SCH (16:47)
[2022-01-06] MEDS ORDERED: oxyCODONE/ACETAMINOPHEN 5mg/325mg TAB PO PRN (16:47)
[2022-01-06] MEDS ORDERED: HYDROmorphone INJ 0.5 MG/0.5 ML SYR IV PRN (16:47)
[2022-01-06] MEDS ORDERED: PIPERACILLIN/TAZOBACTAM 3.375 GM in DEXTROSE 5% 100 ML IV SCH (16:47)
[2022-01-06] MEDS ORDERED: ACETAMINOPHEN 325 MG TAB PO STA (16:53)
[2022-01-06] MEDS ORDERED: PIPERACILLIN/TAZOBACTAM 3.375 GM in DEXTROSE 5% 100 ML IV ONE (17:30)
[2022-01-06 17:37] LABS: Albumin Globulin Ratio 1.2 (0.9-2); Albumin Level 3.8 gm/dl (3.4-5.0); BUN Creatinine Ratio 14.5 (10-20); Bilirubin,Total 0.6 mg/dl (0.2-1.0); Calcium 8.4 mg/dl (8.5-10.1); Creatinine Clr Calc Pharmacy 143.9 ml/min; Est GFR (African American) 122.7 ml/min; Est GFR (Non-African American) 105.9 ml/min; Globulin 3.2 gm/dl (2.5-4.0); Potassium 3.6 mmol/L (3.5-5.1)
[2022-01-06] MEDS: SODIUM CHLORIDE 0.9% 1000ML 1,000 ML IV SCH (17:44)
[2022-01-06] MEDS: CIPROFLOXACIN 500 MG TAB PO SCH (20:49)
[2022-01-06] MEDS: PIPERACILLIN/TAZOBACTAM 4.5 GM in DEXTROSE 5% 100 ML IV SCH (21:44)
[2022-01-07] MEDS ORDERED: ACETAMINOPHEN 325 MG TAB PO PRN (01:00)
[2022-01-07] MEDS: PIPERACILLIN/TAZOBACTAM 4.5 GM in DEXTROSE 5% 100 ML IV SCH (05:49)
[2022-01-07] MEDS: SODIUM CHLORIDE 0.9% 1000ML 1,000 ML IV SCH (05:50)
[2022-01-07] MEDS: CIPROFLOXACIN 500 MG TAB PO SCH (07:47)
[2022-01-07] MEDS ORDERED: MULTIVITAMIN TAB PO SCH (09:00)
[2022-01-07] MEDS ORDERED: lisinopril 5 MG TAB PO SCH (09:00)
[2022-01-07 09:03] LABS: Hematocrit (blood only) 37.2 % (34.1-44.9); Hemoglobin 12.1 g/dl (12.0-16.0); Mean Corpuscular Hemoglobin 30.1 pg (25.0-34.0); Mean Corpuscular Hgb Conc 32.5 g/dL (32.0-36.0); Mean Corpuscular Volume 92.5 fL (80.0-100.0); RDW Coefficient of Variation 14.7 % (11.5-14.5); Red Blood Count 4.02 M/uL (3.93-5.22); White Blood Count 7.81 K/ul (4.8-10.8)
[2022-01-07 09:38] LABS: Albumin Globulin Ratio 1.1 (0.9-2); Albumin Level 3.6 gm/dl (3.4-5.0); BUN Creatinine Ratio 13.9 (10-20); Bilirubin,Total 0.7 mg/dl (0.2-1.0); Calcium 8.2 mg/dl (8.5-10.1); Creatinine Clr Calc Pharmacy 137.9 ml/min; Est GFR (Non-African American) 101.9 ml/min; Globulin 3.2 gm/dl (2.5-4.0); Potassium 3.9 mmol/L (3.5-5.1); Total Protein 6.8 gm/dl (6.0-8.3)
[2022-01-07 10:07] LABS: Basophils # (auto) 0.05 K/uL (0-0.2); Basophils % (auto) 0.6 %; Eosinophils # (auto) 0.18 K/uL (0-0.50); Eosinophils % (auto) 2.3 %; Immature Granulocytes # (auto) 0.04 K/uL (0.00-0.02); Immature Granulocytes % (auto) 0.5 %; Lymphocytes # (auto) 1.93 K/uL (1.2-3.4); Lymphocytes % (auto) 24.7 %; Mean Platelet Volume 13.2 fL (9.4-12.3); Monocytes # (auto) 0.54 K/uL (0.24-0.82); Monocytes % (auto) 6.9 %; Neutrophils # (auto) 5.07 K/uL (1.4-6.5); Platelet Count 213 K/uL (130-400)
--- NOTE | 2022-01-07 11:04 | Discharge Summary ---
Date of Service January 07, 2022 Admission HPI Per Admitting Provider pt is a 46 year-old female who presents to to Er with one hour history blood in ANGUS drainage ball, about 20 ml red blood in ANGUS drainage ball, pt said pt was doing fine after discharged home until this morning, she found some blood in ANGUS drainage ball, and some blood around dressing, pt denies abdominal pain, no fever, no dizziness Principal Diagnosis postop bleeding Discharge Exam Constitutional WD/WN, vitals as above + obese; no acute distress and not ill appearing Neck normal visual inspection and trachea midline Respiratory normal respiratory effort; no respiratory distress, no labored breathing and no retractions Gastrointestinal (Abdomen) Inspection/Auscultation: abdomen normal to inspection and + abdominal surgical drain present (bloody output about 15 cc, no active bleeding around drain site); abdomen not distended Percussion/Palpation: abdomen soft; abdomen nontender, no guarding and abdomen not rigid Skin no rashes, warm and dry Psychiatric A+Ox3, euthymic affect Discharge Data Allergies Allergy/AdvReac Type Severity Reaction Status Date / Time No Known Allergies Allergy Unverified 12/29/21 07:06 Ordered Studies 01/06/22 08:24 CT abd pelvis IV con only Stat Hospital Course (1) ANGUS drain bleeding: Patient presented to ED on POD # 7 s/p laparoscopic subtotal cholecystectomy with bleeding from drain site and blood in angus drain. She had no abdominal pain, nausea, vomiting, dizziness. She had a CT scan of abdomen and pelvis which showed postoperative changes in the cholecystectomy bed however no evidence of hemorrhage. She was admitted to hospital overnight for observation. Labs repeated in am on HD # 1 and stable, no leukocytosis, hemoglobin stable at 12.1 (12.6 in ED) and t. bili and lfts wnl. She had no abdominal pain, tolerated clear liquids, no n,v. Angus drainage was 40 cc. She was discharged home in stable condition with close follow-up scheduled on Monday01/10/[address] Cai. Total Time Total Time Spent Total Time Spent (In Minutes): 45 minutes Total Time Includes: Examination of the Patient, Discharge Planning and Medication Reconciliation Discharge Plan Discharge Items Patient Disposition: Home - Self-Care Reason For Visit: BLOOD IN ANGUS DRAINAGE BALL Discharge Diagnosis: Bloody angus drainage Condition on Discharge: Good Activity: Per Instructions section Non-emergency contact: Primary Care Provider and Surgeon Call non-emergency contact if: you have any medication questions, your pain is not controlled, your pain is worsening, your pain is concerning for you, you have a fever, your temperature is above 101, your wound has increased redness, your wound has increased drainage and your wound pain has increased Follow-up/Referrals: Seble Cai MD [Physician] - 01/10/22 12:45 pm Emre Eldridge DO [Primary Care Provider] - Diet: Regular Addtl Attending Provider Instructions: Post-Surgical ~Discharge Instructions Activity Recommendations: - lifting limitation: (20 pounds for 4 weeks), - exercise/sex/sports limit: (nonstrenuous for 4 weeks), - driving or machine use limit: (none for 1 week or until pain free), - Shower/bathe limit: (may shower ) Diet: - Resume previous diet SPECIAL CARE INSTRUCTIONS: - May shower. Let water run over area and pat dry. - Record drain output and color daily and bring record with you to your office follow-up on Monday. - If the bloody drainage significantly increases please call the office or the hospital. - Would recommend apply pressure to the drain site with a pillow or folded blanket if you notice bleeding coming around drain site. Apply pressure for 20 minutes. - Call the surgeon's office with any questions or concerns - - (ex. temperature higher than 101 degrees F, excessive bleeding or pain). MEDICATIONS: - Resume previous medications unless instructed otherwise by your surgeon. - You can take extra strength Tylenol as needed for mild to moderate pain. -500-650 mg Tylenol every 6 hours as needed - Avoid NSAIDs (Ibuprofen, Advil, aspirin) as these can cause bleeding. FOLLOW UP VISIT: - Follow-up as scheduled on Monday with Dr. Cai. - If you have any concerns over the weekend, please call the office and this will be transferred to the on-call surgeon who is Dr. Cai this weekend. Office number You can also call the hospital number and they can get Dr. Cai paged and in contact with you. [facility] number is [phone] Pending Studies at Discharge: No Stand-Alone Forms: My [facility], Smoking Cessation Medications and DC Order Prescriptions: Continued lisinopril 5 mg Tablet 5 mg PO QAM ciprofloxacin HCl 500 mg tablet 500 mg PO BID Qty: 10 0RF multivitamin Tablet 1 tab PO QAM Discharge Orders: Discharge Order (Routine); Ordered 01/07/22 Ordered By: Linda Cochran Admission Data Admit Date/Time: 01/06/22 10:34 Attending Provider: Seble Cia Admit Provider: Seble Cai Primary Care Provider: Emre Eldridge Other Interventions: Discharge Summary Assessment (RN) Last Done: 01/07/22 10:54
== END 2022-01-07 12:24 | disposition home or self-care (01) ==
LOC: ED 07:01 → INTOOBSV 10:34 → 3W 10:34